=== PATIENT | female | born 1995 | race Caucasian/White ===

== ENCOUNTER 2017-10-06 17:42 | Emergency (ER) | payer BC ==
[~2017-10-06] VITALS: Ht 165.1 cm; Wt 61.2 kg
[2017-10-06 17:46] VITALS: BP_SYST 136
--- NOTE | 2017-10-06 18:08 | NUR ---
Patient to ER bed 05 to gown for evaluation. Side rails up. Report given to Maria Antonia LARA.
--- NOTE | 2017-10-06 18:10 | NUR ---
Pt complains of having anxiety and trouble sleeping since last night. Pt states she is feeling overwhelmed because of school and was unable to fall asleep last night. Pt states she gets nauseous at times. Per patient, she visited Dr. Harding and was prescribed Xanax 0.25mg. Pt states she has an appointment for but could not take the anxiety and came to ED. Family at bedside. No other injuries/complaints per patient or noted.
--- NOTE | 2017-10-06 18:15 | NUR ---
ER JEREMY Lai at bedside examining patient.
--- NOTE | 2017-10-06 18:40 | NUR ---
Pt ambulated to restroom to provide urine. Sent to lab.
[2017-10-06] MEDS: LORazepam 1 MG TABLET PO ONE (18:54)
--- NOTE | 2017-10-06 19:00 | NUR ---
Note undone in EDM - 10/06/17 at 1902 by [email or web address] Pt complains of having anxiety and trouble sleeping since last night. Pt states she is feeling overwhelmed because of school and was unable to fall asleep last night. Pt states she gets nauseous at times. Per patient, she visited Dr. Harding and was prescribed Xanax 0.25mg. Pt states she has an appointment for but could not take the anxiety and came to ED. Family at bedside. No other injuries/complaints per patient or noted.
--- NOTE | 2017-10-06 19:00 | NUR ---
Medication was given, pt tolerated well. No adverse reaction, will continue to monitor.
[2017-10-06 19:15] VITALS: BP_SYST 124
--- NOTE | 2017-10-06 19:15 | NUR ---
Patient given written and verbal discharge instructions and verbalizes understanding. ER MD discussed with patient the results and treatment provided. Patient in stable condition. ID arm band removed. No Rx given. Patient educated on pain management and to follow up with PMD. Pain Scale 0. Opportunity for questions provided and answered.
== END 2017-10-06 19:15 | disposition home or self-care (01) ==
LOC: SED 17:42
DX: F41.9 Anxiety disorder, unspecified (principal); R03.0 Elevated blood-pressure reading, without diagnosis of hypertension
CPT/HCPCS: 81025; 99284